=== PATIENT | female | born 1940 | race Caucasian/White ===

== ENCOUNTER → 2017-05-03 | Outpatient (CLI) | payer MEDICARE, OTHER ==
[~2017-05-03] MED LIST: ABILIFY10 MG; ADVAIR 10028 PUFF/IN INH; ADVAIR 250/5028 PUFF IN; AUGMENTIN 875-1 EACH PO; BACTROBAN2% TP; CELEBREX 200MG200 MG PO; CIPRO 250MG TA250 MG PO; LEVAQUIN 750 M750 MG PO; METHYLPREDNISONE PO; NOMEDS *; OMEPRAZOLE20 MG PO; SPIRIVA HA1 PUFF/INH IH; TESSALON PERLE100 M1 PO; VENTOLIN H0.09 MG/AC INH
--- NOTE | 2017-05-03 12:30 | RADIOLOGY REPORT PS360 ---
EXAM: LUMBAR SPINE 5 VIEWS HISTORY: JEFFREY LOW BACK PAIN W/SCIATICA ORDERING PHYSICIAN: Evelin Bocanegra MD PATIENT AGE: 76 years COMPARISON: None FINDINGS: Mild dextroscoliosis of the lower lumbar spine the pelvis is tilted with the right side somewhat inferior to the left side. Multilevel degenerative disc disease is present from L2 to S1. Facet arthritic changes are present from L3 to S1. No fracture or dislocation. No lytic or blastic change. Degenerative disc disease is worse at the L5-S1 level. There are multilevel osteophytes. IMPRESSION: Lumbar spondylosis with multilevel degenerative disc disease and facet arthritic change
== END ==
LOC: RAD 09:49
DX: M54.40 Lumbago with sciatica, unspecified side (principal)